=== PATIENT | male | born 1940 | race Caucasian/White ===

== ENCOUNTER 2018-04-16 10:54 | Emergency (ER) | payer OTHER, BC ==
[2018-04-16 11:47] VITALS: BP 153/74; PULSE 95; TEMP 98.2; BMI 20.9
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
== END 2018-04-16 13:50 | disposition home or self-care (01) ==
LOC: JERFT 10:54
PROC: 2W3CX1Z Immobilization of Right Lower Arm using Splint (ICD-10-PCS; principal; 2018-04-16)
DX: S63.501A Unspecified sprain of right wrist, initial encounter (principal); W10.8XXA Fall (on) (from) other stairs and steps, initial encounter; Y93.89 Activity, other specified; Y92.89 Other specified places as the place of occurrence of the external cause; Y99.8 Other external cause status; Z87.19 Personal history of other diseases of the digestive system; Z87.820 Personal history of traumatic brain injury
CPT/HCPCS: 29125; 73110-TC-RT-FY; 73130-TC-RT-FY; 99281-25

== ENCOUNTER 2019-05-05 05:35 | Inpatient (IN) | payer OTHER, BC ==
[2019-05-05 07:22] LABS: BASO % 0.2 % (0-2.0); EOS % 1.2 % (0-4.5); HEMATOCRIT 33.7 % (35.4-49); HEMOGLOBIN 11.9 GM/dL (11.7-16.9); MCH 33.8 pg (25.7-33.7); MCHC 35.2 g/dl (32.0-35.9); MEAN PLT VOLUME 7.2 fl (7.5-11.1); NEUT % 79.6 % (42.8-82.8); PLATELET COUNT 130 K/MM3 (134-434); RBC 3.51 M/mm3 (4.00-5.60); RDW 14.7 % (11.9-15.9); WHITE BLOOD COUNT 4.9 K/mm3 (4.0-10.0)
[2019-05-05 07:48] LABS: ALBUMIN 3.8 g/dl (3.4-5.0); BILIRUBIN,TOTAL 0.7 mg/dL (0.2-1); BLOOD UREA NITROGEN 7.4 mg/dL (7-18); CALCIUM 8.3 mg/dL (8.5-10.1); CREATININE 0.5 mg/dL (0.55-1.3); TOT PROT 6.4 g/dl (6.4-8.2)
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
[2019-05-05] MEDS ORDERED: ACETAMINOPHEN 500 MG TABLET (FP) PO ONE (09:10)
[2019-05-05] MEDS ORDERED: ACETAMINOPHEN 325 MG TABLET (FP) ONE (09:16)
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
--- NOTE | 2019-05-05 10:11 | EKG ---
Test Reason : Blood Pressure : / mmHG Vent. Rate : 089 BPM Atrial Rate : 089 BPM P-R Int : 188 ms QRS Dur : 132 ms QT Int : 398 ms P-R-T Axes : 065 072 056 degrees QTc Int : 484 ms NORMAL SINUS RHYTHM RIGHT BUNDLE BRANCH BLOCK ABNORMAL ECG WHEN COMPARED WITH ECG OF 25-APR-2014 16:50, RIGHT BUNDLE BRANCH BLOCK IS NOW PRESENT Confirmed by MIL ROCKWELL, WILLIAM ([id number]) on 05/05/2019 10:11:19 AM Referred By: Confirmed By:WILLIAM JAEGER MD
[2019-05-05] MEDS ORDERED: THIAMINE HCL 200 MG/2 ML VIAL IVPB ONE (10:32)
[2019-05-05] MEDS ORDERED: FOLIC ACID INJECTION - 1 MG, THIAMINE HCL 100 MG, MULTIVIT INJECTION ADULT 10 ML in SOD... IVPB ONE (10:34)
[2019-05-05 16:43] VITALS: BMI 21.9
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
[2019-05-05] MEDS ORDERED: chlordiazePOXIDE HCL 25 MG CAPSULE PO PRN (18:55)
[2019-05-05] MEDS ORDERED: ACETAMINOPHEN 500 MG TABLET (FP) PO PRN (18:58)
[2019-05-05] MEDS: levETIRAcetam 500 MG TABLET (FP) PO SCH (21:37)
[2019-05-05] MEDS: ATENOLOL 25 MG TABLET (FP) PO SCH (21:37)
[2019-05-06 07:54] LABS: INR 1.03 (0.83-1.09); PROTHROMBIN TIME (PATIENT) 12.1 SEC (9.7-13.0)
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
[2019-05-06] MEDS: ATENOLOL 25 MG TABLET (FP) PO SCH (10:22)
[2019-05-06] MEDS: levETIRAcetam 500 MG TABLET (FP) PO SCH (10:22)
[2019-05-06] MEDS: ENOXAPARIN NA (PORCINE) 40 MG/0.4 ML DISP.SYRIN SQ SCH (10:23)
[2019-05-06] MEDS: DOCUSATE SODIUM 100 MG CAPSULE (FP) PO SCH (10:24)
[2019-05-06] MEDS: THIAMINE HCL 100 MG TABLET (FP) PO SCH (10:24)
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
[2019-05-06] MEDS ORDERED: CYANOCOBALAMIN (VITAMIN B-12) 1000 MCG/1 ML VIAL IM ONE (12:52)
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
[2019-05-07] MEDS: ENOXAPARIN NA (PORCINE) 40 MG/0.4 ML DISP.SYRIN SQ SCH (09:11)
[2019-05-07] MEDS: DOCUSATE SODIUM 100 MG CAPSULE (FP) PO SCH (09:12)
[2019-05-07] MEDS: THIAMINE HCL 100 MG TABLET (FP) PO SCH (09:12)
[2019-05-07 09:38] LABS: BLOOD UREA NITROGEN 7.7 mg/dL (7-18); CALCIUM 8.7 mg/dL (8.5-10.1); CREATININE 0.6 mg/dL (0.55-1.3); POTASSIUM 3.6 mmol/L (3.5-5.1); URIC ACID 5.4 mg/dL (2.6-7.2)
--- NOTE | 2019-05-07 12:23 | PN ---
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 CT spine-DilaTED ESOPhagus. Reviewed with PMD F/U GI
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
[2019-05-07] MEDS ORDERED: amLODIPine BESYLATE 2.5 MG TABLET (FP) PO ONE (18:07)
[2019-05-07] MEDS: guaiFENesin/D-METHORPHAN HB 10 ML UNIT-DOSE CUPS PO PRN (18:30)
--- NOTE | 2019-05-07 19:54 | PN.GI ---
GI Progress Note Subjective: Asked to f/u re: CT scan findings of neck (dilated proximal esophagus with retained food). Patient describes occasional dysphagia symptoms. - Objective Vital Signs: Vital Signs Temperature 98.8 F 05/07/19 18:00 Pulse Rate 66 05/07/19 18:00 Respiratory Rate 18 05/07/19 18:00 Blood Pressure 147/81 05/07/19 18:00 O2 Sat by Pulse Oximetry (%) 94 L 05/07/19 09:00 Constitutional: Calm Eyes: No: Sclera Icterus Cardiovascular: Yes: Regular Rate and Rhythm Respiratory: No: CTA Bilaterally Gastrointestinal Inspection: No: Distention ...Auscultate: Yes: Normoactive Bowel Sounds ...Palpate: Yes: Soft. No: Hepatomegaly, Splenomegaly, Tenderness ...Percussion: No: Tympanitic Edema: No (No LE edema) Neurological: Yes: Alert Labs: CBC, BMP 05/05/19 07:09 05/07/19 07:20 INR, PTT INR 1.03 (0.83-1.09) 05/06/19 07:13 Problem List - Problems (1) Dysphagia Assessment/Plan: For further evaluation of Abnormal esophageal findings noted on imaging and Prior to PEG removal, discussed upper endoscopy (+/- dilation / banding of varices). Discussed potential risks of the procedure like but not limited to bleeding, perforation requiring surgery to repair, infection, sedation medication effects all of which could be potentially life threatening. He has agreed to the procedure. Code(s): R13.10 - DYSPHAGIA, UNSPECIFIED
[2019-05-08] MEDS ORDERED: PT OWN MED DRAWER 7, Y5N ONE (07:02)
[2019-05-08 10:29] LABS: BASO % 0.4 % (0-2.0); EOS % 4.9 % (0-4.5); HEMATOCRIT 32.4 % (35.4-49); HEMOGLOBIN 11.5 GM/dL (11.7-16.9); MCH 33.9 pg (25.7-33.7); MCHC 35.5 g/dl (32.0-35.9); MEAN CELL VOLUME 95.5 fl (80-96); MEAN PLT VOLUME 7.2 fl (7.5-11.1); MONO % 4.1 % (3.8-10.2); NEUT % 69.6 % (42.8-82.8); PLATELET COUNT 133 K/MM3 (134-434); RDW 14.5 % (11.9-15.9); WHITE BLOOD COUNT 3.4 K/mm3 (4.0-10.0)
[2019-05-08 10:46] LABS: INR 1.04 (0.83-1.09); PROTHROMBIN TIME (PATIENT) 12.3 SEC (9.7-13.0)
[2019-05-08 10:56] LABS: BLOOD UREA NITROGEN 6.6 mg/dL (7-18); CALCIUM 8.5 mg/dL (8.5-10.1); CREATININE 0.6 mg/dL (0.55-1.3)
--- NOTE | 2019-05-08 11:07 | PN ---
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 - Note Progress Note: Selected Entries 05/06/19 05/06/19 05/06/19 01:00 05:00 15:00 Breakfast 100% Lunch 100% Supper Temperature 98.7 F 98.1 F 05/06/19 05/06/19 05/06/19 15:30 17:25 18:00 Breakfast Lunch Supper 100% Temperature 99.1 F 98.2 F 05/07/19 05/07/19 05/07/19 02:00 06:00 09:51 Breakfast Lunch Supper Temperature 98.9 F 98.5 F 98.6 F Laboratory Tests 05/05/19 07:09 WBC 4.9 Selected Entries 05/07/19 05/07/19 05/07/19 02:00 06:00 09:51 Temperature 98.9 F 98.5 F 98.6 F 05/07/19 05/07/19 05/08/19 14:00 18:00 06:00 Temperature 99.6 F 98.8 F 98.3 F MBS/esophageal screen revealed Structural change in proximal esophagus with hang up with solids/liquids. CT spine-DilaTED ESOPhagus. Reviewed results of MBS and films with GI Endoscopy scheduled for today. Noted cough. Seenn walking in hallway.
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
[2019-05-08] MEDS ORDERED: amLODIPine BESYLATE 5 MG TABLET (FP) PO ONE (12:45)
--- NOTE | 2019-05-08 13:32 | PN ---
Progress Note (short form) - Note Progress Note: Brief GI note Pt seen/examined this am, reporting worsening cough with some production of yellowish secretions, and describes mucus/secretions in throat. Denies dysphagia to liquids or solids, occasional regurgitation noted. Tolerating regular diet. Denies chest pain or sob. Pt sitting up, appears comfortable, coughing intermittently O2 sat 94% room air Abd soft, nt, nd Peg in place CT and Modified barium swallow reviewed and discussed with OVERHEAD DOOR TECHNICIAN CXR reviewed, unremarkable Recommendations: -Case discussed with anesthesiologist, due to worsening cough and no dysphagia reported would defer EGD today as risks may outweigh potential benefits. -Recommend obtain esophagram to further evaluate and assess proximal esophageal anatomy prior to considering endoscopy and PEG removal -Discussed with speech/language therapist and medicine team
[2019-05-08] MEDS: DOCUSATE SODIUM 100 MG CAPSULE (FP) PO SCH (15:03)
[2019-05-08] MEDS: THIAMINE HCL 100 MG TABLET (FP) PO SCH (15:03)
[2019-05-08] MEDS: guaiFENesin/D-METHORPHAN HB 10 ML UNIT-DOSE CUPS PO PRN (20:59)
[2019-05-09] MEDS: THIAMINE HCL 100 MG TABLET (FP) PO SCH (10:19)
[2019-05-09] MEDS: DOCUSATE SODIUM 100 MG CAPSULE (FP) PO SCH (10:19)
[2019-05-09] MEDS: guaiFENesin/D-METHORPHAN HB 10 ML UNIT-DOSE CUPS PO PRN ×2 (11:18→20:55)
[2019-05-09] MEDS ORDERED: DOXAZOSIN MESYLATE 1 MG TABLET PO ONE (13:00)
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
--- NOTE | 2019-05-09 20:09 | PN.GI ---
GI Progress Note Subjective: esophagram with cervical esophagus pulsion diverticulum with stricturing distal to this. DOoes have dysphagia complaints. - Objective Vital Signs: Vital Signs Temperature 98.5 F 05/09/19 18:00 Pulse Rate 73 05/09/19 18:00 Respiratory Rate 18 05/09/19 18:00 Blood Pressure 142/66 05/09/19 18:00 O2 Sat by Pulse Oximetry (%) 96 05/09/19 09:00 Constitutional: Calm Eyes: No: Sclera Icterus Cardiovascular: Yes: Regular Rate and Rhythm Respiratory: Yes: CTA Bilaterally Gastrointestinal Inspection: No: Distention ...Auscultate: Yes: Normoactive Bowel Sounds ...Palpate: Yes: Soft. No: Hepatomegaly, Splenomegaly, Tenderness ...Percussion: No: Tympanitic Edema: No (No LE edema) Neurological: Yes: Alert Labs: CBC, BMP 05/08/19 09:58 05/08/19 09:58 INR, PTT INR 1.04 (0.83-1.09) 05/08/19 09:58 Problem List - Problems (1) Dysphagia Assessment/Plan: Proximal esophageal diverticulum with stricture. Recommend further evaluation at a tertiary care center by advanced endoscopist. explained this to Mr. Dennis. Discussed with Dr. Bazan. Would have this further evaluated prior to removal of PEG. [facility] (Dr. Sean Zee) would be an option. Continue chopped diet Code(s): R13.10 - DYSPHAGIA, UNSPECIFIED
[2019-05-10 08:34] LABS: HEMATOCRIT 30.9 % (35.4-49); MCH 33.8 pg (25.7-33.7); MCHC 35.8 g/dl (32.0-35.9); MEAN CELL VOLUME 94.4 fl (80-96); MEAN PLT VOLUME 7.4 fl (7.5-11.1); PLATELET COUNT 138 K/MM3 (134-434); RBC 3.27 M/mm3 (4.00-5.60); RDW 14.5 % (11.9-15.9); WHITE BLOOD COUNT 3.6 K/mm3 (4.0-10.0)
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
[2019-05-10] MEDS ORDERED: PT OWN MED DRAWER 7, Y5N ONE ×2 (10:17→19:10)
[2019-05-10] MEDS: DOCUSATE SODIUM 100 MG CAPSULE (FP) PO SCH (10:31)
[2019-05-10] MEDS: guaiFENesin/D-METHORPHAN HB 10 ML UNIT-DOSE CUPS PO PRN (10:31)
[2019-05-10] MEDS: CYANOCOBALAMIN 1,000 MCG TABLET (FP) PO SCH (10:32)
[2019-05-10] MEDS: THIAMINE HCL 100 MG TABLET (FP) PO SCH (10:32)
[2019-05-10] MEDS: DOXAZOSIN MESYLATE 1 MG TABLET PO SCH (11:39)
--- NOTE | 2019-05-10 14:46 | PN ---
Progress Note, MATERNAL FETAL PHYSICIAN - Note Progress Note: EGD deferred due to cough. Esophagram- cervical esophagus pulsion diverticulum with stricture On chopped, moist, soft to chew diet Selected Entries 05/10/19 05/10/19 05/10/19 06:39 10:00 14:00 Breakfast 75% Lunch 75% Temperature 98.7 F 98.4 F 98.9 F Laboratory Tests 05/10/19 07:42 WBC 3.6 L Small bites, chew well, f/u eith sip of liquid
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
[2019-05-11] MEDS: CYANOCOBALAMIN 1,000 MCG TABLET (FP) PO SCH (10:14)
[2019-05-11] MEDS: DOCUSATE SODIUM 100 MG CAPSULE (FP) PO SCH (10:14)
[2019-05-11] MEDS ORDERED: PT OWN MED DRAWER 7, Y5N ONE (10:16)
[2019-05-11] MEDS: DOXAZOSIN MESYLATE 1 MG TABLET PO SCH (10:16)
[2019-05-11] MEDS: THIAMINE HCL 100 MG TABLET (FP) PO SCH (10:16)
[2019-05-11 14:51] VITALS: BP 118/59; PULSE 67; TEMP 98.5
== END 2019-05-11 16:55 | DRG 92 ==
LOC: JER 05:35 → JERBED 12:34 → J5S 15:18
PROVIDERS: ADMIT Internal Medicine; ATTEND Internal Medicine
DX: R26.9 Unspecified abnormalities of gait and mobility (principal); D61.818 Other pancytopenia; Q39.6 Congenital diverticulum of esophagus; F10.20 Alcohol dependence, uncomplicated; K70.30 Alcoholic cirrhosis of liver without ascites; R62.7 Adult failure to thrive; I10 Essential (primary) hypertension; D64.9 Anemia, unspecified; R56.9 Unspecified convulsions; K29.40 Chronic atrophic gastritis without bleeding; D72.819 Decreased white blood cell count, unspecified; R13.10 Dysphagia, unspecified
CPT/HCPCS: 36415; 70450-TC; 71045-TC-FY; 71250-TC; 72125-TC; 72170-TC-FY; 73110-TC-LT-FY; 73523-TC-FY; 73552-TC-LT-FY; 73552-TC-RT-FY; 74220-TC-FY; 74230-TC-FY; 80048; 80053; 80307; 82550; 82553; 82607; 82728; 83615; 84443; 84484; 84550; 85025; 85027; 85044; 85610; 85651; 86340; 92611-GN; 93005; 93010; 97116-GP; 97161-GP; 99285-25; J7030